=== PATIENT | male | born 1960 | race Caucasian/White ===

== ENCOUNTER 2016-04-19 02:33 | Inpatient (IN) ==
[2016-04-19] MEDS ORDERED: Ondansetron 4 MG/2 ML VIAL IV STA (02:37)
[2016-04-19 03:01] LABS: Basophils % 0.1 %; Eosinophils % 0.2 %; Hematocrit 41.7 % (37.5-50.1); Hemoglobin 12.8 g/dL (12.9-16.9); Immature Granulocytes % 0.7 % (0-4); Lymphocytes # 0.7 K/mcL (0.6-4.6); Lymphocytes % 5.1 %; Mean Corpuscular HGB Conc 30.7 g/dL (31.6-35.5); Mean Corpuscular Hemoglobin 23.3 pg (28.0-33.3); Mean Corpuscular Volume 75.8 fL (83.0-100.0); Mean Platelet Volume 9.6 fL (9.4-12.4); Monocytes # 0.7 K/mcL (0.0-1.3); Monocytes % 4.6 %; Neutrophils # 12.9 K/mcL (1.6-8.9); Platelet Count 303 K/mcL (140-400); Red Cell Distribution Width 16.4 % (11.5-14.5); Segmented Neutrophils % 89.3 %
[2016-04-19 03:13] LABS: BUN/Creatinine Ratio 17 (6-26); Blood Urea Nitrogen 14 mg/dL (8-26); Calcium 8.6 mg/dL (8.6-10.8); Carbon Dioxide 22 mEq/L (19-29); Chloride 107 mEq/L (98-109); Glucose 177 mg/dL (70-99); Osmolality,Calculated 299 (280-300); Potassium 3.5 mEq/L (3.5-4.5); Sodium 142 mEq/L (136-145); eGFR For African Americans > 60 (> 60); eGFR For Non-African Americans > 60 (> 60)
--- NOTE | 2016-04-19 03:22 | Emergency Department Note ---
Disposition Clinical Impression: Seizure, Hypoxia, Hypoglycemia Disposition: Admitted As Inpatient Condition: Good Time of Disposition: 04:39 Seizure HPI - General Chief Complaint: ED Nausea/Vomiting/Diarrhea Stated Complaint: hypoglycemia Time Seen by Provider: 04/19/16 02:36 Source: patient, family, EMS Mode of arrival: ambulatory Limitations: no limitations, altered mental status Nursing Notes Reviewed: Yes Vital Signs Reviewed: Yes - History of Present Illness HPI Narrative: History obtained by patient, family, and EMS providers. Her the patient's , she woke up to him with his arm straight up in the bed moaning in apparent discomfort. He was rigid and unresponsive to her voice. She states that this lasted approximately 2 minutes. She checked his blood sugar during this episode which was 78. Afterwards, the patient was unresponsive to her and lethargic. She called 911. His blood pressure was found to be as low as 50. He received dextrose by ambulance providers with resolution of his hypoglycemia. On arrival to the emergency department, the patient was very confused and slightly somnolent. Per his , this is improving compared when he was picked up by paramedics. His past medical history of insulin-dependent diabetes for which he uses an insulin pump. He does not have any history or family history of seizure disorder. No recent illness or injury. No trauma or medication change. No history of alcohol, benzodiazepine use. - Related Data Allergies Allergy/AdvReac Type Severity Reaction Status Date / Time No Known Allergies Allergy Verified 04/19/16 02:44 All systems ED: reviewed and negative except as stated. Past Medical History - Past Medical History Attestation: Yes The following information was validated with the patient. Source: obtained from family Medical history: Reports: diabetes, hyperlipidemia, hypertension - Social History Smoking Status: Never smoker Smokeless Tobacco Status: Yes Alcohol use: Reports: occasionally Drug use: Reports: none Physical Exam - Head Head exam: atraumatic, normocephalic, normal inspection - Eye Eye exam: Present: normal appearance, PERRL, EOMI - ENT ENT exam: normal exam, normal oropharynx, mucous membranes moist - Neck Neck exam: Present: normal inspection, full ROM, trachea midline - Chest Chest inspection: Present: normal inspection, symmetric chest wall rise - Respiratory Respiratory exam: Clear to auscultation bilaterally without wheezes rales or rhonchi Cardiovascular Cardiovascular exam: Present: regular rate, normal rhythm, normal heart sounds - Abdominal Exam Abdominal exam: Present: soft, Non-Tender. Absent: tenderness, distention, guarding, rebound, rigidity - Extremities Exam Extremities exam: Present: normal inspection, full ROM - Expanded Lower Extremity Exam Hip/Pelvis exam: Present: normal inspection, full ROM - Back Exam Back exam: Present: normal inspection, full ROM. Absent: tenderness, CVA tenderness (R), CVA tenderness (L) - Neurological Exam Neurological exam: Present: alert, oriented X3, CN II-XII intact. While patient is oriented 3, he is slightly confused and answers some questions inappropriately. - Psychiatric Psychiatric exam: Present: normal affect, normal mood - Skin Skin exam: Present: warm, dry, intact, normal color - General Limitations: altered mental status General appearance: alert Course Vital Signs Temperature 97.8 F 04/19/16 02:35 Pulse Rate 75 04/19/16 02:35 Respiratory Rate 16 04/19/16 02:35 Blood Pressure 140/82 04/19/16 02:35 O2 Sat by Pulse Oximetry 85 L 04/19/16 02:35 Temperature 100.2 F H 04/19/16 05:12 Pulse Rate 91 04/19/16 05:12 Respiratory Rate 20 04/19/16 05:12 Blood Pressure 78/42 04/19/16 05:12 O2 Sat by Pulse Oximetry 93 L 04/19/16 05:12 Oxygen Delivery Oxygen Delivery Nasal Cannula Seizure - Lab Data Result diagrams: 04/19/16 02:56 04/19/16 02:56 Lab Results 04/19/16 04/19/16 04/19/16 Range/Units 02:37 02:56 02:56 WBC 14.5 H (4.3-11.1) K/mcL RBC 5.50 (4.19-5.50) M/mcL Hgb 12.8 L (12.9-16.9) g/dL Hct 41.7 (37.5-50.1) % MCV 75.8 L (83.0-100.0) fL MCH 23.3 L (28.0-33.3) pg MCHC 30.7 L (31.6-35.5) g/dL RDW 16.4 H (11.5-14.5) % Plt Count 303 (140-400) K/mcL MPV 9.6 (9.4-12.4) fL Immature Gran % 0.7 (0-4) % Seg Neutrophils % 89.3 % Lymphocytes % 5.1 % Monocytes % 4.6 % Eosinophils % 0.2 % Basophils % 0.1 % Neutrophils # 12.9 H (1.6-8.9) K/mcL Lymphocytes # 0.7 (0.6-4.6) K/mcL Monocytes # 0.7 (0.0-1.3) K/mcL Eosinophils # 0.0 (0.0-0.6) K/mcL Basophils # 0.0 (0.0-0.2) K/mcL Sodium 142 (136-145) mEq/L Potassium 3.5 (3.5-4.5) mEq/L Chloride 107 (98-109) mEq/L Carbon Dioxide 22 (19-29) mEq/L BUN 14 (8-26) mg/dL Creatinine 0.83 (0.72-1.25) mg/dL Est GFR ( Amer) > 60 (> 60) Est GFR (Non-Af Amer) > 60 (> 60) BUN/Creatinine Ratio 17 (6-26) Glucose 177 H (70-99) mg/dL POC Glucose 158 H (58-89) Calculated Osmolality 299 (280-300) Calcium 8.6 (8.6-10.8) mg/dL Total Bilirubin 0.5 (0.2-1.2) mg/dL Direct Bilirubin 0.2 (0.0-0.5) mg/dL Indirect Bilirubin 0.3 (0.0-1.2) mg/dL AST 30 (5-34) Units/L ALT 26 (0-55) Units/L Alkaline Phosphatase 87 (38-126) Units/L Troponin I (0-0.03) ng/mL Serum Total Protein 6.7 (6.0-8.3) g/dL Albumin 4.1 (3.5-5.0) g/dL Globulin 2.6 (2.4-3.5) g/dL Albumin/Globulin Ratio 1.6 (1.1-2.2) Lipase 15 (8-78) Units/L 04/19/16 Range/Units 02:56 WBC (4.3-11.1) K/mcL RBC (4.19-5.50) M/mcL Hgb (12.9-16.9) g/dL Hct (37.5-50.1) % MCV (83.0-100.0) fL MCH (28.0-33.3) pg MCHC (31.6-35.5) g/dL RDW (11.5-14.5) % Plt Count (140-400) K/mcL MPV (9.4-12.4) fL Immature Gran % (0-4) % Seg Neutrophils % % Lymphocytes % % Monocytes % % Eosinophils % % Basophils % % Neutrophils # (1.6-8.9) K/mcL Lymphocytes # (0.6-4.6) K/mcL Monocytes # (0.0-1.3) K/mcL Eosinophils # (0.0-0.6) K/mcL Basophils # (0.0-0.2) K/mcL Sodium (136-145) mEq/L Potassium (3.5-4.5) mEq/L Chloride (98-109) mEq/L Carbon Dioxide (19-29) mEq/L BUN (8-26) mg/dL Creatinine (0.72-1.25) mg/dL Est GFR ( Amer) (> 60) Est GFR (Non-Af Amer) (> 60) BUN/Creatinine Ratio (6-26) Glucose (70-99) mg/dL POC Glucose (58-89) Calculated Osmolality (280-300) Calcium (8.6-10.8) mg/dL Total Bilirubin (0.2-1.2) mg/dL Direct Bilirubin (0.0-0.5) mg/dL Indirect Bilirubin (0.0-1.2) mg/dL AST (5-34) Units/L ALT (0-55) Units/L Alkaline Phosphatase (38-126) Units/L Troponin I 0.00 (0-0.03) ng/mL Serum Total Protein (6.0-8.3) g/dL Albumin (3.5-5.0) g/dL Globulin (2.4-3.5) g/dL Albumin/Globulin Ratio (1.1-2.2) Lipase (8-78) Units/L - EKG Data EKG results narrative: Normal sinus rhythm at 83 with normal axis and intervals. No ST elevation or depression. No pathologic Q waves. No old EKG available. Attestation Statement - Attestation Attestation: For this encounter, I have reviewed the resident, SPOUTING INSTALLER, or PA documentation, treatment plan, and medical decision making; and I have had face to face time with this patient. 36-year-old male brought in by EMS after possible seizure at home. states that they are both sleeping when the patient suddenly stiffened and started moaning. Patient was unable to respond to her at this time. The patient's blood sugar was 78 during this episode. Upon EMS arrival the EMS obtained a fingerstick blood sugar less than 60. They gave an amp of D50 which improved the patient's blood sugar. Patient was postictal upon arrival to the emergency department. He gradually became more alert and was able answer questions. No recent medication changes. Patient is not taking [id number] medications. No recent trauma. No history of epilepsy. Patient was hypoxic upon arrival to the emergency department, satting 86% on room air. Patient possibly had an aspiration event during his seizure. Patient will be admitted to the hospital for first time seizure and hypoxia. Patient and are comfortable with plan for admission to the hospital.
[2016-04-19 03:30] LABS: Alanine Aminotransferase 26 Units/L (0-55); Albumin 4.1 g/dL (3.5-5.0); Albumin/Globulin Ratio 1.6 (1.1-2.2); Alkaline Phosphatase 87 Units/L (38-126); Aspartate Amino Transferase 30 Units/L (5-34); Bilirubin,Direct 0.2 mg/dL (0.0-0.5); Bilirubin,Indirect 0.3 mg/dL (0.0-1.2); Bilirubin,Total 0.5 mg/dL (0.2-1.2); Globulin 2.6 g/dL (2.4-3.5); Lipase 15 Units/L (8-78); Total Protein 6.7 g/dL (6.0-8.3)
[2016-04-19] MEDS ORDERED: *HR* Promethazine 25 MG/ML VIAL IVP ONE (04:49)
[2016-04-19] MEDS ORDERED: Ondansetron 4 MG/2 ML VIAL IVP PRN (05:45)
[2016-04-19] MEDS ORDERED: Naloxone 0.4 MG/ML INJ IVP PRN (05:45)
[2016-04-19] MEDS ORDERED: Acetaminophen 325 MG TABLET PO PRN (05:45)
[2016-04-19] MEDS ORDERED: *HR* LORazepam 2 MG/ML VIAL IVP PRN (05:55)
[2016-04-19] MEDS ORDERED: Vancomycin 1,500 MG in D5% in Water 250 ML IVPB SCH (06:00)
--- NOTE | 2016-04-19 06:06 | Internal Med History&Physical ---
Date of Encounter: 04/19/16 Time of Encounter: 05:57 Assessment and Plan (1) Acute encephalopathy Current visit: Yes Status: Acute 1. Given the presenting history and current symptoms, I am concerned about infectious etiology. 2. Will order STAT blood cultures, urine culture, CSF culture and CSF for HSV PCR. 3. I will request LP through radiology. 4. Will start IV Vancomycin, Rocephin, and IV Acyclovir. 5. Will monitor glucose levels hourly for now. 6. Will check Influenza A, B, H1N1. (2) Hypoglycemia Current visit: Yes Status: Acute 1. Monitor glucose hourly for now until it stabilizes. 2. Insulin pump removed. (3) Seizure Current visit: Yes Status: Acute 1. Likely due to hypoglycemia, but infectious etiology is a concern. 2. Work-up as above. 3. Continue antibiotics and Acyclovir until results obtained. 4. Will obtain MRI brain and EEG. 5. Consult neurology. (4) DVT prophylaxis Current visit: Yes Status: Acute 1. Heparin SQ. Internal Medicine - H&P: HPI Chief complaint: seizure Admitted From: Emergency Dept Plans for Post Hospital Care: Home History of present illness: Mr. Waldrop is a 56 year old male who presents to ER with seizure that awoke him from sleep at roughly 1 AM this morning. His witnessed the event and she awoke from sleep to attend to his needs. She checked his glucose and it was 78 at that time. Because his seizure lasted several minutes, she called 911. EMS arrived and checked his glucose again and administered 2 amps of dextrose. Glucose levels were above 78. Nonetheless, he received dextrose and was transported to the ER. In the ER, patient remained postictal and had initial chemistries and labs drawn. CT of the head and chest x-ray were both negative. He was then admitted to hospitalist service for seizure, possibly due to hypoglycemia or new onset seizure disorder. Upon my assessment of the patient on the floor, he appears ill with low-grade fever, chills, body aches, confusion, disorientation, cool extremities, and excessive somnolence. I ordered stat glucose level and it was 142. I talked with his at length and she confirmed that he is now roughly 5 hours postseizure and remains quite postictal. He has never had a seizure before. He has had no ill contacts. He has not had any fevers, shakes, chills, night sweats, vomiting, diarrhea, cough, or congestion prior to this event. He was feeling well last night before going to bed. He has never had an encephalopathic event such as this one. She denies that he has any history of oral cold sores or oral herpes. He has not had any new medications. He does not use any street drugs. He drinks rare alcohol. He has not had any flu exposure that she knows of. Given his current state, I am concerned about encephalitis, and I will therefore initiate antibiotics and IV acyclovir medications immediately. Meanwhile, I am going to order a lumbar puncture for CSF studies per radiology and an MRI as well. Additionally, I will obtain an EEG and consult neurology for assistance. We will also monitor his glucose levels hourly, and his insulin pump has been removed. I explained this to his and she agrees with the plan. Past Med Surg Social Fam HX - Past Medical History Source: old records reviewed, obtained from family Medical history: diabetes, hyperlipidemia, hypertension Psychiatric history: no psych history - Past Surgical History Surgical History: appendectomy, hip replacement - Social History Smoking Status: Never smoker Smokeless Tobacco Status: Yes Alcohol use: occasionally Drug use: none Occupational status: employed Current living situation: Home, With Family Activity Level: Independent ambulation Recent Out of Country Travel Within the Last 8 Weeks: No - Family History Father Living Status: Still Living Hx Family Cardiac Disorders: Yes (heart attack) Mother History Unknown: Yes Living Status: Cause of : Breast Cancer Hx Family Cancer: Yes Internal Medicine - H&P: Meds Allergies No Known Allergies Allergy (Verified 04/19/16 02:44) ROS unobtainable: due to mental status Review of systems: unobtainable from patient due to mental status; as per [facility] [place] according to - Constitutional Vitals: Temp Pulse Resp BP Pulse Ox 100.2 F H 91 20 78/42 93 L 04/19/16 05:12 04/19/16 05:12 04/19/16 05:12 04/19/16 05:12 04/19/16 05:12 General appearance: Present: cooperative, A&O X 1, mild distress. Absent: answers questions appropriately Exam: appears ill; shivering; non-toxic; confused and disoriented; temperature 100.2 F - Head Head exam: Present: atraumatic, normal inspection - Expanded Head Exam Head exam expanded: Absent: abrasion, contusion, general tenderness, hematoma - Eye Eye exam: Present: EOMI, PERRL. Absent: scleral icterus Pupils: Present: normal accommodation - ENT ENT exam: Present: mucous membranes dry, normal exam, normal oropharynx - Neck Neck exam general surgery: Present: full ROM, normal inspection, supple. Absent : lymphadenopathy, tenderness, nuchal rigidity, thyromegaly - Respiratory Respiratory exam: Present: CTAB, tachypnea. Absent: chest wall tenderness, rales, rhonchi, wheezes - Cardiovascular Cardiovascular exam: Present: RRR, +S1, +S2. Absent: diastolic murmur, systolic murmur - GI/Abdominal GI/Abdominal exam: Present: normal bowel sounds, soft. Absent: hepatomegaly, mass, splenomegaly, tenderness - Extremities Exam Extremities exam: Present: full ROM, radial pulses palpable and symetrical. Absent: calf tenderness, joint swelling, normal capillary refill (delayed at roughly 3 seconds), tenderness, warm (cool hands and feet) - Back Exam Back exam: Present: normal inspection. Absent: CVA tenderness (L), CVA tenderness (R), paraspinal tenderness - Neurological Exam Neurological exam: Present: alert, altered, CN II-XII intact, no focal deficits , strengths equal and symetr throughout. Absent: oriented X3 Additional comments: Negative Kernig; Negative Brudzinski - Psychiatric Additional comments: somnolent; arousable; confused - Skin Skin exam: Present: dry, warm (cool feet/hands/warm torso). Absent: petechiae, rash Internal Med - H&P Results - Labs CBC & Chem 7: 04/19/16 02:56 04/19/16 02:56 - EKG Data -: EKG Interpreted by Myself - EKG Data Prior EKG available for review: no EKG comments: 04/19/16 06:11 sinus rhythm; septal Q waves suggest old septal [place]. - Diagnostic Studies Chest x-ray Status: image reviewed by me (negative)
[2016-04-19] MEDS ORDERED: Vancomycin 2,000 MG in D5% in Water 500 ML IVPB ONE (06:15)
[2016-04-19] MEDS: 0.9 % Sodium Chloride w KCl 20 MEQ/1,000 ML MLS IVC SCH (06:22)
[2016-04-19 06:26] LABS: Bilirubin,Urine Negative (Negative); Blood,Urine Moderate (Negative); Clarity,Urine Clear (Clear); Color,Urine Yellow (Yellow); Glucose,Urine (UA) 500 mg/dL (Normal); Ketones,Urine Negative (Negative); Leukocyte Esterase,Urine Negative (Negative); Nitrite,Urine Negative (Negative); Protein,Urine 30 mg/dL (Neg-Trace); Specific Gravity,Urine 1.024 (1.010-1.025); Urobilinogen,Urine Normal (Normal)
[2016-04-19 06:31] LABS: Bacteria,Urine None Seen per hpf (None-Few); Hyaline Casts,Urine None Seen per lpf (None-Few); Squamous Epithelial Cell,Urine Many per lpf (None-Few)
[2016-04-19] MEDS: *HR* Heparin 5,000 UNIT/ML VIAL SQ SCH ×2 (06:32→18:39)
[2016-04-19 06:44] LABS: Prothrombin Time 11.1 Seconds (9.4-12.1)
[2016-04-19 06:47] LABS: Activated Partial Thrombo Time 24.6 Seconds (26.0-36.0)
[2016-04-19] MEDS ORDERED: 0.9 % Sodium Chloride 1,000 ML IVC ONE (07:45)
[2016-04-19 08:04] LABS: 2009 H1N1 PCR NOT DETECTED (Not Detect); Influenza A PCR Negative (Negative); Influenza B PCR Negative (Negative)
[2016-04-19 10:35] LABS: Red Blood Cell,CSF < 0.002 M/mcL
[2016-04-19 10:41] LABS: Appearance,CSF Clear (Clear)
[2016-04-19] MEDS: Acyclovir 800 MG in D5% in Water 250 ML IVPB SCH ×3 (10:45→23:19)
[2016-04-19 11:11] LABS: Glucose,CSF 98 mg/dL (40-70); Total Protein,CSF 40 mg/dL (15-45)
--- NOTE | 2016-04-19 13:18 | EEG/EMG/Oth Biometrics Report ---
EEG Procedure Report Date of procedure: 04/19/16 Procedure Note: This EEG was acquired with standard international 1020 system with EKG recording. The background EEG activity was characterized by the presence of mixture of alpha, theta and delta activity with best frequency of 10.5 Hz. The background activity was reactive to eye openings. Sleep stages were not identified during this tracing. Drowsiness was characterized by drop off of posterior dominant Alpha rhythm. There are no electrographic seizures identified during this tracing. There are no epileptiform discharges and focal slowing noted during this recording. Photic stimulation produced and hyperventilation produced no abnormalities. EKG tracing showed no significant cardiac dysrhythmia. Impression: This is essentially a normal awake and asleep EEG. Clinical Correlation: Normal EEGs, however, do not exclude epilepsy. Clinical correlation is advised.
[2016-04-19] MEDS ORDERED: Dextrose Gel 15 GM PO PRN ×2 (13:32)
[2016-04-19] MEDS ORDERED: D5% in Water 1,000 ML IV PRN (13:32)
[2016-04-19] MEDS ORDERED: *HR* Dextrose 50 % in Water (Syg) 50 ML SYRINGE IVP PRN (13:32)
--- NOTE | 2016-04-19 13:40 | Internal Med Progress Note ---
Date of Encounter: 04/19/16 Time of Encounter: 11:00 - Assessment and plan (1) Viral syndrome Current Visit: Yes Status: Acute Assessment and plan: Patient with fever, chills, leukocytosis NO source for now CSF does not show elevated protein or white or red cells, CSF glucose was elevated UA is unremarkable CXR with no infiltrates EEG is back with normal results will continue antibiotics for now Neurology eval Brain MRI is pending Sliding scale insulin FS [id number], feed patient and monitor closely Urine, blood cultures have been sent, will follow Will not administer anti-epilepsy medications as at now, Patient is high risk due to risk of recurrent seizures with encephalopathy, suspected sepsis from unknown source as of now, and on Vancomycin which needs monitoring (2) Diabetes mellitus Current Visit: Yes Status: Chronic Qualifiers: Diabetes mellitus type: type 1 Diabetes mellitus complication status: with unspecified complications Qualified Code(s): E10.8 - Type 1 diabetes mellitus with unspecified complications (3) Acute encephalopathy Current Visit: Yes Status: Resolved (4) Hypoglycemia Current Visit: Yes Status: Resolved Assessment and plan: Continue to monitor FS (5) Seizure Current Visit: Yes Status: Acute Assessment and plan: Possibly secondary to hypoglycemia, however, FS was 78 at time of event Follow neurology eval Seizure precautions - Subjective Interval history: 56 Y/O M with Type I DM, HTN Patient was in his usual state of health till early hours of the morning when his witnessed what seemed to be "tonic seizure" per chart He also had a prolonged post-ictal state and fevers and was started on empiric meningitis management At my time of review, patient was awaiting LP He is awake and alert, oriented X3 but thought he was hospitalized because of low sugars. He denies fever or chills, main complain was just of fatigue. He denies flu- like symptoms or sick contacts, denies urinary symptoms, cough , shortness of breath. He has no skin lesions. He has no abdominal pain or diarrhea he continues to be febrile. - Constitutional Vitals: Temp Pulse Resp BP Pulse Ox 100.9 F H 79 94 151/68 93 L 04/19/16 07:45 04/19/16 07:45 04/19/16 07:45 04/19/16 07:45 04/19/16 08:48 General appearance: Present: cooperative, A&O X 3, pleasant, no acute distress. Absent: answers questions appropriately - Head Head exam: Present: atraumatic, normocephalic - Eye Eye exam: Present: PERRL, conjuntiva pink, sclera anicteric Pupils: Present: PERRL - Neck Neck exam general surgery: Present: supple, trachea midline. Absent: lymphadenopathy - Respiratory Respiratory exam: Present: CTAB. Absent: accessory muscle use, rales, rhonchi, wheezes - Cardiovascular Cardiovascular exam: Present: RRR, +S1, +S2. Absent: diastolic murmur, gallop, rubs, systolic murmur - GI/Abdominal GI/Abdominal exam: Present: normal bowel sounds, soft, no peritoneal signs. Absent: distended, tenderness - Extremities Exam Extremities exam: Present: warm, radial pulses palpable and symetrical. Absent : calf tenderness, cyanotic, pedal edema - Neurological Exam Neurological exam: Present: CN II-XII intact, oriented X3, no focal deficits. Absent: pronater drift, facial droop, speech deficit Additional comments: No meningeal signs neck is supple, Bruskinski and Kernig's negative - Skin Skin exam: Present: dry, intact Internal Medicine: Result - Labs CBC & Chem 7: 04/19/16 02:56 04/19/16 02:56 Labs: Urine 04/19/16 Range/Units 06:05 Urine Color Yellow (Yellow) Urine Clarity Clear (Clear) Urine pH 6.0 (5.0-8.0) pH Units Ur Specific [employer] 1.024 (1.010-1.025) Urine Protein 30 H (Neg-Trace) mg/dL Urine Glucose (UA) 500 H (Normal) mg/dL - ABG Interpretation ABG results: PT/INR, D-dimer PT 11.1 Seconds (9.4-12.1) 04/19/16 02:50 - Impressions Impressions Lumbar Puncture Fluoroscopy 04/19/16 05:45 IMPRESSION: Successful fluoroscopic-guided lumbar puncture. D/ / 04/19/2016 10:30:05 Karri Giron MD / Ara Oneal Interpreting Provider: Karri Giron MD Consult Discharge Plan - Plan Referrals: Gabrielle Carvajal, [employer] [Primary Care Provider] -
--- NOTE | 2016-04-19 13:41 | Neurology - Consult Note ---
Date of Encounter: 04/19/16 Time of Encounter: 13:41 Assessment and Plan (1) Acute encephalopathy Current Visit: Yes Status: Resolved 1. Unclear etiology and is resolving with no acute focal neurological deficits 2. Questionable seizure activity, EEG very limited secondary to motion artifact but no clear epileptic discharge activity was noted. 3. MRI is pending 4. Head CT negative. LP performed and negative for bacteria, final cultures still pending as well as HSV 5. Patient does have a mild leukocytosis today with borderline fevers of 100.2 and 100.9. No clear source and the patient is otherwise asymptomatic. Could be related to a viral syndrome. No recent travel, sick contacts. However, will check Lyme disease titer. 6. I am also concerned with the patient's possible new murmur and diaphoresis. EKG from the ED was unavailable, would consider repeat EKG and ordering echo although the patient is asymptomatic. Will defer to primary team. 7. Further recommendations pending MRI results and attending evaluation. History of Present Illness Chief complaint: possible seizure HPI: Mr. Waldrop is a 56 year old male who presented through the [facility] this morning after what is thought to be seizure-like activity. History is obtained from chart review but mainly from the patient's who was with him the entire time. The patient doesn't really remember what happened. The states that she was awoken from sleep around 0100 today with the patient gritting his teeth, both arms flexed forward and remained stiff. She also states he was moaning, almost in agony, and was very loud. States this went on for several minutes. She did not notice any rhythmic motions, jerking, head turning, foaming at the mouth, or involvement of the lower extremities. He has never had symptoms like this before. Reports she thought it may be related to his blood sugar but checked it and it was very good for him, around 70. Reports the episode stopped but he has remained confused since. She does state he is better than what he was but is still not back to baseline. There was no preceeding events or trauma that they could remember. He denies any recent fevers, chills, chest pain, shortness of breath , neck pain/stiffness, rash, abdominal pain, n/v/d, numbness/weakness in any extremity, trouble speaking, or any other symptoms. He states that he just feels extremely tired and wants to sleep all the time since the event. There was no associated trauma 2/2 the event as the patient remained in bed until EMS arrival. Per ED/Hosp notes, the patient seemed post-ictal for several hours after this event. No history of seizure disorder. Only PMH is HTN, HLD, DM. Reports compliance with his medications. Past Med Surg Social Fam HX - Past Medical History Medical history: diabetes, hyperlipidemia, hypertension Psychiatric history: no psych history - Past Surgical History Surgical History: appendectomy, hip replacement - Social History Smoking Status: Never smoker Smokeless Tobacco Status: Yes Alcohol use: occasionally Drug use: none - Family History Father Living Status: Still Living Hx Family Cardiac Disorders: Yes (heart attack) Mother History Unknown: Yes Living Status: Cause of : Breast Cancer Hx Family Cancer: Yes Medications and Allergies Aspirin [Lo-Dose Aspirin EC] 81 mg PO DAILY 04/19/16 [History] Atorvastatin [Lipitor] 80 mg PO HS 04/19/16 [History] Ferrous Sulfate [Iron] 325 mg PO DAILY 04/19/16 [History] Insulin ASPART [NovoLOG] 80 unit IJ DAILY PRN 04/19/16 [History] Lisinopril [Zestril] 10 mg PO DAILY 04/19/16 [History] Terbinafine HCl [Lamisil] 250 mg PO DAILY 04/19/16 [History] Allergies No Known Allergies Allergy (Verified 04/19/16 10:27) All Systems: A 10-system review of systems was performed and is negative for pertinent findings except as documented above in the HPI. - Constitutional Constitutional ROS IM: daytime sleepiness, fatigue, lethargy, malaise, weakness (generalized ), no chills, no fever(s), no headache(s) - Eyes Eyes: bilateral: blurred vision (denies ) - Nose, Mouth, Throat Nose, mouth and throat: no dry mouth, no dysphagia, no headache(s), no neck pain , no tongue swelling, no vertigo - Cardiovascular Cardiovascular ROS IM: no chest pain, no chest pain at rest, no chest pain with activity, no dyspnea, no edema - Respiratory Respiratory IM: no cough, no dyspnea - Gastrointestinal Gastrointestinal: no abdominal pain, no vomiting - Genitourinary Genitourinary ROS: no dysuria, no flank pain - Musculoskeletal Musculoskeletal ROS IM: no back pain - Integumentary Integumentary IM: no rash - Neurological Neurological ROS: as per HPI, abnormal movements, confusion, convulsions, weakness, no dizziness, no focal weakness, no headache(s), no loss of vision, no numbness, no paresthesias, no sensory deficit, no syncope, no tingling - Psychiatric Psychiatric general PM: no abnormal sleep pattern Physical Examination - Vital Signs Vital Signs: Initial Vital Signs Temp Pulse Resp BP Pulse Ox 97.8 F 75 16 140/82 85 L 04/19/16 02:35 04/19/16 02:35 04/19/16 02:35 04/19/16 02:35 04/19/16 02:35 - Exam Exam: patient also has irregular heart rhythm and does have a very faint new murmur. It sounds like end-systolic but could be early diastolic. Patient also has very strong, bounding, carotid pulses and at his sternal notch. He is diaphoretic, frequently falling asleep, and appears comfortable but some what confused. - Constitutional General appearance: comfortable, acutely ill - Neurologic Sensorimotor examination: pronator drift (Slight on L) Detailed motor examination: grossly full strength in all extremities, full strength in all major muscle groups Motor examination - right side: 5/5: deltoids, biceps, triceps, wrist flexion, wrist extension, fur blower operator, hip flexors, tibialis Anterior, quadriceps, toe extension (EHL), plantarflexion Motor examination - left side: 4/5: fur blower operator, 5/5: deltoids, biceps, triceps, wrist flexion, wrist extension, hip flexors, quadriceps, tibialis Anterior, toe extension (EHL), plantarflexion Detailed sensory examination: intact Reflexes: Biceps: 1+, Triceps: 2+, Brachioradialis: 2+, Patella: 1+, Achilles: 1 + Mental Status Examination: awake, oriented to person (Knows full name), oriented to place ("I don't know", Does not know what town he is in or what hospital. Able to state he is from [place], [place].), oriented to time (" April 2016"), follows commands appropriately, answers questions appropriately , no agnosia, no aphasia, no aproxia, drowsy (fell asleep several times during exam if not directly engaged in conversation or exam ), lethargic, opens eyes to voice, makes eye contact, impaired memory (from event on ) Cranial nerve examination: PERRL, EOMI, visual burgess intact, sensory to face intact, mastication intact, no facial asymmetry is present, no dysarthria, hearing is intact symmetrically, soft palate elevates bilaterally upon phonation , flexes SCM and trapezius muscles symmetrically with full power, tongue protrudes midline, no atrophy or facial fasiculations present Cerebellar examination: performs finger to nose and heel to sue symmetrically without ataxia Results - Laboratory Findings CBC and BMP: 04/19/16 02:56 04/19/16 02:56 Abnormal lab findings: Abnormal lab results WBC 14.5 K/mcL (4.3-11.1) H 04/19/16 02:56 Hgb 12.8 g/dL (12.9-16.9) L 04/19/16 02:56 MCV 75.8 fL (83.0-100.0) L 04/19/16 02:56 MCH 23.3 pg (28.0-33.3) L 04/19/16 02:56 MCHC 30.7 g/dL (31.6-35.5) L 04/19/16 02:56 RDW 16.4 % (11.5-14.5) H 04/19/16 02:56 Neutrophils # 12.9 K/mcL (1.6-8.9) H 04/19/16 02:56 APTT 24.6 Seconds (26.0-36.0) L 04/19/16 02:50 Glucose 177 mg/dL (70-99) H 04/19/16 02:56 POC Glucose 142 (58-89) H 04/19/16 05:18 Urine Protein 30 mg/dL (Neg-Trace) H 04/19/16 06:05 Urine Glucose (UA) 500 mg/dL (Normal) H 04/19/16 06:05 Urine Blood Moderate (Negative) H 04/19/16 06:05 Urine Microscopic RBC 3-5 per hpf (0-3) H 04/19/16 06:05 Urine Microscopic WBC 5-15 per hpf (0-3) H 04/19/16 06:05 Ur Squamous Epith Cells Many per lpf (None-Few) H 04/19/16 06:05 CSF Glucose 98 mg/dL (40-70) H 04/19/16 09:40 Consult Discharge Plan - Plan Referrals: Gabrielle Carvajal, JUANY [Primary Care Provider] -
--- NOTE | 2016-04-19 15:16 | Electrocardiograph Report ---
[address] [place] [address] Test Date: 2016-04-19 Pat Name: Tc Waldrop Department: 103 Room: 3B22 Gender: Device Repair Technician: : 1960 Requested By: Jose E Hayes Order Number: [id number] Reading MD: Rachelle Betancourt Measurements Intervals [place] Rate: 83 P: 37 AL: 202 QRS: 39 QRSD: 104 T: 45 QT: 380 QTc: 420 Interpretive Statements SINUS RHYTHM POSSIBLE SEPTAL MYOCARDIAL INFARCTION, PROBABLY OLD Electronically Signed On 04-19-2016 15:14:44 EST by Rachelle Betancourt
[2016-04-19] MEDS: Insulin LISPRO 300 UNITS/3 ML VIAL SQ SCH ×2 (17:32→20:54)
[2016-04-19] MEDS ORDERED: Vancomycin 1,750 MG in D5% in Water 500 ML IVPB SCH (18:00)
[2016-04-20] MEDS: 0.9 % Sodium Chloride w KCl 20 MEQ/1,000 ML MLS IVC SCH (00:39)
[2016-04-20 04:10] LABS: Basophils % 0.3 %; Eosinophils % 0.2 %; Hematocrit 35.8 % (37.5-50.1); Immature Granulocytes % 0.4 % (0-4); Lymphocytes # 1.2 K/mcL (0.6-4.6); Lymphocytes % 10.2 %; Mean Corpuscular Hemoglobin 23.2 pg (28.0-33.3); Mean Corpuscular Volume 74.9 fL (83.0-100.0); Mean Platelet Volume 10.3 fL (9.4-12.4); Monocytes # 0.8 K/mcL (0.0-1.3); Monocytes % 6.6 %; Neutrophils # 9.4 K/mcL (1.6-8.9); Platelet Count 233 K/mcL (140-400); Red Blood Count 4.78 M/mcL (4.19-5.50); Red Cell Distribution Width 16.9 % (11.5-14.5); Segmented Neutrophils % 82.3 %
[2016-04-20 04:14] LABS: Hemoglobin 11.1 g/dL (12.9-16.9)
[2016-04-20 04:30] LABS: Alanine Aminotransferase 36 Units/L (0-55); Albumin/Globulin Ratio 1.2 (1.1-2.2); Alkaline Phosphatase 65 Units/L (38-126); Aspartate Amino Transferase 79 Units/L (5-34); BUN/Creatinine Ratio 15 (6-26); Bilirubin,Total 0.7 mg/dL (0.2-1.2); Blood Urea Nitrogen 14 mg/dL (8-26); Calcium 8.7 mg/dL (8.6-10.8); Carbon Dioxide 19 mEq/L (19-29); Chloride 103 mEq/L (98-109); Globulin 2.6 g/dL (2.4-3.5); Glucose 368 mg/dL (70-99); Magnesium 1.6 mg/dL (1.6-2.6); Osmolality,Calculated 289 (280-300); Potassium 4.5 mEq/L (3.5-4.5); Total Protein 5.8 g/dL (6.0-8.3); eGFR For African Americans > 60 (> 60); eGFR For Non-African Americans > 60 (> 60)
[2016-04-20 04:31] LABS: Albumin 3.2 g/dL (3.5-5.0); Sodium 132 mEq/L (136-145)
[2016-04-20] MEDS: *HR* Heparin 5,000 UNIT/ML VIAL SQ SCH ×2 (06:35→18:19)
[2016-04-20] MEDS: Insulin LISPRO 300 UNITS/3 ML VIAL SQ SCH ×5 (08:51→20:31)
[2016-04-20] MEDS ORDERED: Insulin DETEMIR 100 UNIT/ML X5UNITS SQ SCH (09:00)
--- NOTE | 2016-04-20 10:22 | ECHO - Doppler Report ---
Echocardiogram Name: Tc Waldrop Date of Study: 04/20/2016 Date: 1960 Ht: 71.0 in Medical Record#: [id number] Age: 56 Wt: 212.0 lb Gender: Male BSA: 2.16 Order #: [id number] Location: [facility] Room #: 3B22 Reading Physician: Hema Ruiz DO, FACC, ELENA PRICE Steam Trap Worker: Nicolle Turpin RVT, RDCS Ordering Physician: Krishna Strong MD Primary Physician: Gabrielle Carvajal CNP Indications: Murmur Impressions: LVEF 65-70%. Normal LV chamber size and function. Mild concentric left ventricular hypertrophy. Mild left ventricular diastolic dysfunction. Normal right ventricular structure and function. Mild pulmonary hypertension. No significant valvular dysfunction. Left Ventricular Wall Motion: Rest Echo Findings All wall segments showed normal motion. Findings: Study Quality * Technically adequate exam. ECG Findings * Sinus rhythm with PVCs. Left Ventricle * LVEF 65-70%. * Normal LV chamber size and function. * Mild concentric left ventricular hypertrophy. * Mild left ventricular diastolic dysfunction. Right Ventricle * Normal right ventricular structure and function. Left Atrium * Normal left atrial size. Right Atrium * Normal right atrial size. Interatrial Septum * Interatrial septum not well evaluated. Aortic Valve * Trileaflet aortic valve with normal function. * No aortic regurgitation. * No aortic stenosis. Mitral Valve * Normal mitral valve structure and function. * No mitral regurgitation. * No mitral stenosis. Tricuspid Valve * Normal tricuspid valve structure and function. * Trace tricuspid regurgitation. * Mild pulmonary hypertension. Pulmonic Valve * Normal pulmonic valve structure and function. * No pulmonic regurgitation. Aorta * Normally sized aortic root. Pericardium * The pericardium appears normal. IVC * The IVC is not well evaluated. Pulmonary Artery * Normal visualized portions of the main pulmonary artery. History Hypertension Diabetes Hypercholesteremia Family History of CAD Measurements: BP: 112/ 68 2D Normal Values RVIDd: 3.70 cm <2.7 cm IVSd: 1.30 cm 0.6 - 1.0 cm LVIDd: 4.40 cm 3.7 - 5.6 cm LVPWd: 1.30 cm 0.6 - 1.1 cm LVIDs: 3.00 cm 1.5 - 3.6 cm AO: 3.50 cm < 4.0 cm LA: 3.20 cm 2.0 - 4.0cm %FS: 31.80 cm >25 % LA volume: 46 Mitral Valve Peak E:.97 m/sec Peak A:1.02 m/sec E/A Ratio:1 Tricuspid Valve TV Regurg Peak Grad: 38.00mmHg TV Regurg Peak Andreas: 3.07m/sec Updated by Hema Ruiz DO, GABBY, ELENA PRICE on 04/20/2016 10:01:14 AM electronically signed on 04/20/2016 10:18:08 AM with status of Final Wall Motion Cruz: 1=Normal, 2=Hypokinesis, 3=Akinesis, 4=Dyskinesis, 5=Aneurysmal, 6=Hyperkinetic, X=Not Visualized (Blank)=Missing
[2016-04-20] MEDS ORDERED: Insulin LISPRO 300 UNITS/3 ML VIAL SQ SCH (12:00)
--- NOTE | 2016-04-20 16:42 | Internal Med Progress Note ---
Date of Encounter: 04/20/16 Time of Encounter: 12:10 - Assessment and plan (1) Viral syndrome Current Visit: Yes Status: Acute Assessment and plan: Patient presented with fever, chills, leukocytosis CSF does not show elevated protein or white or red cells, CSF glucose was elevated, preliminary culture negative Urine analysis and urine culture with no infection CXR with no infiltrates EEG is back with normal results Brain MRI with no acute finding Patient has been afebrile Will d/c antibiotics, and observe for 24 hrs Anticipate d/c a.m if he remains afebrile Follow blood cultures (2) Diabetes mellitus Current Visit: Yes Status: Chronic Assessment and plan: Resume basal, prandial and supplemental insulin FS ACHS Qualifiers: Diabetes mellitus type: type 1 Diabetes mellitus complication status: with unspecified complications Qualified Code(s): E10.8 - Type 1 diabetes mellitus with unspecified complications (3) Acute encephalopathy Current Visit: Yes Status: Resolved Assessment and plan: Resolved Possibly from post-ictal state and hypoglycemia (4) Hypoglycemia Current Visit: Yes Status: Resolved Assessment and plan: Resolved Continue to monitor FS (5) Seizure Current Visit: Yes Status: Acute Assessment and plan: Possibly secondary to hypoglycemia, however, FS was 78 at time of event Neuro eval appreciated Seizure precautions - Subjective Interval history: 56 Y/O M with Type I DM, HTN He is being managed for new onset seizure (unwitnessed), viral syndrome He has been afebrile for >24hrs, last Temp 04/19/16 100.9 Urine and CSF cultures preliminary no growth Blood culture is pending Patient is awake, alert, able to make conversations He is seen at the bedside with spouse, has no new complains ECHO report noted: LVEF 65-70%, LVH, Mild LVDD, Mild Pul HTN. Normal RV size and function, no valvular dysfunction - Constitutional Vitals: Temp Pulse Resp BP Pulse Ox 98.3 F 83 17 123/74 94 L 04/20/16 16:17 04/20/16 16:17 04/20/16 16:17 04/20/16 16:17 04/20/16 16:17 General appearance: Present: cooperative, A&O X 3, pleasant, no acute distress. Absent: answers questions appropriately - Head Head exam: Present: atraumatic, normocephalic - Eye Eye exam: Present: PERRL, conjuntiva pink, sclera anicteric Pupils: Present: PERRL - Neck Neck exam general surgery: Present: supple, trachea midline. Absent: lymphadenopathy - Respiratory Respiratory exam: Present: CTAB. Absent: accessory muscle use, rales, rhonchi, wheezes - Cardiovascular Cardiovascular exam: Present: RRR, +S1, +S2. Absent: diastolic murmur, gallop, rubs, systolic murmur - GI/Abdominal GI/Abdominal exam: Present: normal bowel sounds, soft, no peritoneal signs. Absent: distended, tenderness - Extremities Exam Extremities exam: Present: warm, radial pulses palpable and symetrical. Absent : calf tenderness, cyanotic, pedal edema - Neurological Exam Neurological exam: Present: CN II-XII intact, oriented X3, no focal deficits. Absent: pronater drift, facial droop, speech deficit - Skin Skin exam: Present: dry, intact Internal Medicine: Result - Labs CBC & Chem 7: 04/20/16 03:37 04/20/16 03:37 Labs: Short CBC 04/20/16 Range/Units 03:37 WBC 11.4 H (4.3-11.1) K/mcL Hgb 11.1 L D (12.9-16.9) g/dL Hct 35.8 L (37.5-50.1) % Plt Count 233 (140-400) K/mcL Neutrophils # 9.4 H (1.6-8.9) K/mcL BMP 04/20/16 03:37 Sodium 132 L D Potassium 4.5 D Chloride 103 Carbon Dioxide 19 BUN 14 Creatinine 0.96 Glucose 368 H Calcium 8.7 Liver Function 04/20/16 Range/Units 03:37 Total Bilirubin 0.7 (0.2-1.2) mg/dL AST 79 H (5-34) Units/L ALT 36 (0-55) Units/L Alkaline Phosphatase 65 (38-126) Units/L Albumin 3.2 L D (3.5-5.0) g/dL - ABG Interpretation ABG results: PT/INR, D-dimer PT 11.1 Seconds (9.4-12.1) 04/19/16 02:50 - Impressions Impressions Brain MRI 04/19/16 05:45 IMPRESSION: 1. Trace chronic microvascular white matter ischemic disease is noted supratentorially. 2. No evidence of acute infarct or intracranial mass. No ictal focus is identified. D/ / 04/19/2016 15:24:03 Jalil White MD / drake Interpreting Provider: Jalil White MD Consult Discharge Plan - Plan Referrals: Gabrielle Carvajal CNP [Primary Care Provider] -
[2016-04-20] MEDS: Insulin DETEMIR 100 UNIT/ML X5UNITS SQ SCH (20:36)
[2016-04-21 03:56] LABS: Basophils % 0.2 %; Eosinophils # 0.1 K/mcL (0.0-0.6); Eosinophils % 1.6 %; Hemoglobin 11.3 g/dL (12.9-16.9); Immature Granulocytes % 0.2 % (0-4); Lymphocytes # 1.2 K/mcL (0.6-4.6); Lymphocytes % 14.6 %; Mean Corpuscular HGB Conc 31.4 g/dL (31.6-35.5); Mean Corpuscular Hemoglobin 23.3 pg (28.0-33.3); Mean Corpuscular Volume 74.1 fL (83.0-100.0); Monocytes # 0.7 K/mcL (0.0-1.3); Monocytes % 8.9 %; Neutrophils # 6.1 K/mcL (1.6-8.9); Platelet Count 224 K/mcL (140-400); Red Blood Count 4.86 M/mcL (4.19-5.50); Red Cell Distribution Width 16.8 % (11.5-14.5); Segmented Neutrophils % 74.5 %
[2016-04-21] MEDS: *HR* Heparin 5,000 UNIT/ML VIAL SQ SCH (06:15)
[2016-04-21 07:53] VITALS: BP 117/72
[2016-04-21] MEDS: Insulin DETEMIR 100 UNIT/ML X5UNITS SQ SCH (08:38)
[2016-04-21] MEDS: Insulin LISPRO 300 UNITS/3 ML VIAL SQ SCH ×2 (08:38)
--- NOTE | 2016-04-21 08:42 | Discharge Summary ---
Date of Encounter: 04/21/16 Time of Encounter: 08:42 - Discharge Diagnosis (1) Viral syndrome Priority: Primary Status: Acute (2) Diabetes mellitus Priority: Secondary Status: Chronic Qualifiers: Diabetes mellitus type: type 1 Diabetes mellitus complication status: with unspecified complications Qualified Code(s): E10.8 - Type 1 diabetes mellitus with unspecified complications (3) Acute encephalopathy Priority: Secondary Status: Resolved (4) Hypoglycemia Priority: Secondary Status: Resolved (5) Seizure Priority: Primary Status: Acute - Discharge Medications Home Medications: Aspirin [Lo-Dose Aspirin EC] 81 mg PO DAILY 04/19/16 [History] Atorvastatin [Lipitor] 80 mg PO HS 04/19/16 [History] Ferrous Sulfate [Iron] 325 mg PO DAILY 04/19/16 [History] Insulin ASPART [NovoLOG] 80 unit IJ DAILY PRN 04/19/16 [History] Lisinopril [Zestril] 10 mg PO DAILY 04/19/16 [History] Terbinafine HCl [Lamisil] 250 mg PO DAILY 04/19/16 [History] Allergies/Adverse Reactions: Allergies No Known Allergies Allergy (Verified 04/19/16 10:27) Date of admission: 04/20/16 16:30 Primary care physician: Gabrielle Carvajal, Discharging clinician: Krishna Strong Anticipated date of discharge: 04/21/16 - Patient Status Disposition: Home, Self-Care Condition: Good - Discharge Instructions Instructions: Diabetic Hypoglycemia (DC) Follow Up With: Gabrielle Carvajal CNP [Primary Care Provider] - 04/29/16 2:15 pm Interval History: See below Hospital course: 56 Y/O M with Type I DM, HTN He was admitted for management of new onset seizure (unwitnessed) and viral syndrome Patient was also febrile with low grade fevers on admission, last Temp 04/19/16 100.9 There was concern for meningitis and suspected sepsis Patient was started on empiric antibiotics for meningitis coverage He was also reviewed by Neurology for new onset seizure, no treatment recommendation Patient is seen this morning at bedside with spouse, ambulatory with no complains and in no form of distress He has been afebrile for >48 hours IV antibiotics were discontinued 24 ours ago, due to no source of infection and negative cultures Urine, blood and CSF cultures preliminary no growth CSF does not show elevated protein or white or red cells, CSF glucose was elevated, preliminary culture negative. Hepres, Lyme PCR not detected. ECHO report noted: LVEF 65-70%, LVH, Mild LVDD, Mild Pul HTN. Normal RV size and function, no valvular dysfunction CXR with no infiltrates EEG is back with normal results Brain MRI with no acute finding Patient's seizure was most likely due to hypoglycemia. He is stable for discharge to follow up wit PCP - Time Spent with Patient Total time spent providing and/or coordinating discharge services: Less than 30 minutes - Constitutional Vitals: Temp Pulse Resp BP Pulse Ox 98.5 F 71 16 117/72 95 04/21/16 07:48 04/21/16 07:48 04/21/16 07:48 04/21/16 07:48 04/21/16 07:48 General appearance: Present: cooperative, A&O X 3, pleasant, no acute distress, answers questions appropriately - Head Head exam: Present: atraumatic, normocephalic - Eye Eye exam: Present: PERRL, conjuntiva pink, sclera anicteric Pupils: Present: PERRL - Neck Neck exam general surgery: Present: supple, trachea midline. Absent: lymphadenopathy - Respiratory Respiratory exam: Present: CTAB. Absent: accessory muscle use, rales, rhonchi, wheezes - Cardiovascular Cardiovascular exam: Present: RRR, +S1, +S2. Absent: diastolic murmur, gallop, rubs, systolic murmur - GI/Abdominal GI/Abdominal exam: Present: normal bowel sounds, soft, no peritoneal signs. Absent: distended, tenderness - Extremities Exam Extremities exam: Present: warm, radial pulses palpable and symetrical. Absent : calf tenderness, cyanotic, pedal edema - Neurological Exam Neurological exam: Present: CN II-XII intact, oriented X3, no focal deficits. Absent: pronater drift, facial droop, speech deficit - Skin Skin exam: Present: dry, intact
[2016-04-21] MEDS ORDERED: Aminoglycoside Consult 1 EACH MC ONE (10:06)
[2016-04-21 10:12] LABS: HSV Source CSF
== END 2016-04-21 10:07 | disposition home or self-care (01) | DRG 637 ==
LOC: EMEROO 02:33 → 3BNU 02:33 → SUATTDRO 04:34 → 3BNU 05:07
PROVIDERS: ADMIT Pediatrics; ATTEND Internal Medicine

== ENCOUNTER 2020-09-07 11:16 | Observation (INO) ==
[2020-09-07 12:00] LABS: Basophils % 0.4 %; Eosinophils # 0.2 K/mcL (0.0-0.6); Eosinophils % 3.3 %; Hematocrit 41.2 % (37.5-50.1); Hemoglobin 14.7 g/dL (12.9-16.9); Immature Granulocytes % 0.2 % (0-4); Lymphocytes # 1.4 K/mcL (0.6-4.6); Lymphocytes % 27.5 %; Mean Corpuscular HGB Conc 35.7 g/dL (31.6-35.5); Mean Corpuscular Hemoglobin 32.6 pg (28.0-33.3); Mean Corpuscular Volume 91.4 fL (83.0-100.0); Mean Platelet Volume 9.7 fL (9.4-12.4); Monocytes # 0.6 K/mcL (0.0-1.3); Monocytes % 11.2 %; Neutrophils # 2.8 K/mcL (1.6-8.9); Platelet Count 251 K/mcL (140-400); Red Blood Count 4.51 M/mcL (4.19-5.50); Red Cell Distribution Width 11.4 % (11.5-14.5); Segmented Neutrophils % 57.4 %; White Blood Count 4.9 K/mcL (4.3-11.1)
[2020-09-07 12:15] LABS: Prothrombin Time 11.8 Seconds (9.4-12.1)
[2020-09-07 12:16] LABS: BUN/Creatinine Ratio 15 (6-26); Blood Urea Nitrogen 11 mg/dL (8-23); Calcium 8.6 mg/dL (8.6-10.3); Carbon Dioxide 28 mEq/L (23-29); Chloride 106 mEq/L (98-107); Glucose 218 mg/dL (70-105); Osmolality,Calculated 296 (280-300); Potassium 3.4 mEq/L (3.5-5.1); Sodium 140 mEq/L (136-145); Troponin I < 0.03 ng/mL (< 0.04); eGFR For African Americans > 60 (> 60); eGFR For Non-African Americans > 60 (> 60)
[2020-09-07 12:18] LABS: Activated Partial Thrombo Time 28.4 Seconds (26.0-36.0)
[2020-09-07] MEDS ORDERED: Naloxone 0.4 MG/ML INJ IVP PRN (13:38)
[2020-09-07 14:12] LABS: Magnesium 1.9 mg/dL (1.6-2.6)
[2020-09-07] MEDS ORDERED: Perflutren Lipid Microsphere 1.3 ML in 0.9 % Sodium Chloride 8.7 ML IVP PRN (14:46)
[2020-09-07] MEDS ORDERED: D5% in Water 1,000 ML IVC PRN (14:50)
[2020-09-07] MEDS ORDERED: *HR* Dextrose 50 % in Water (Vial) 50 ML VIAL IVP PRN (14:50)
[2020-09-07] MEDS ORDERED: Dextrose Gel 15 GM/37.5 ML TUBE PO PRN ×2 (14:50)
[2020-09-07] MEDS ORDERED: *HR* LORazepam 2 MG/ML VIAL IVP PRN ×3 (14:50)
[2020-09-07] MEDS: Insulin LISPRO 300 UNITS/3 ML VIAL SUBQ SCH (16:03)
[2020-09-07] MEDS: Thiamine (B-1) 100 MG TABLET PO SCH (16:43)
[2020-09-07] MEDS: Folic Acid 1 MG TABLET PO SCH (16:43)
[2020-09-07] MEDS: *HR* Heparin 5,000 UNIT/ML VIAL SQ SCH (20:10)
[2020-09-07] MEDS ORDERED: Insulin LISPRO 300 UNITS/3 ML VIAL SUBQ SCH (21:00)
[2020-09-08 06:04] LABS: BUN/Creatinine Ratio 17 (6-26); Blood Urea Nitrogen 13 mg/dL (8-23); Calcium 8.7 mg/dL (8.6-10.3); Carbon Dioxide 30 mEq/L (23-29); Chloride 107 mEq/L (98-107); Glucose 138 mg/dL (70-105); Osmolality,Calculated 296 (280-300); Potassium 3.6 mEq/L (3.5-5.1); Sodium 142 mEq/L (136-145); eGFR For African Americans > 60 (> 60); eGFR For Non-African Americans > 60 (> 60)
[2020-09-08] MEDS: *HR* Heparin 5,000 UNIT/ML VIAL SQ SCH (06:07)
[2020-09-08] MEDS ORDERED: Regadenoson 0.4 MG/5 ML SYRINGE IVP ONE (06:20)
[2020-09-08] MEDS ORDERED: Fluticasone Propionate Nasal 50 MCG/SPRAY BOTTLE NS PRN (07:35)
[2020-09-08] MEDS: Insulin LISPRO 300 UNITS/3 ML VIAL SUBQ SCH (08:52)
[2020-09-08] MEDS ORDERED: lisinopriL 10 MG TABLET PO SCH (09:00)
[2020-09-08] MEDS: Thiamine (B-1) 100 MG TABLET PO SCH (09:06)
[2020-09-08] MEDS: Folic Acid 1 MG TABLET PO SCH (09:07)
[2020-09-08 10:52] VITALS: BP 152/86
[2020-09-08] MEDS ORDERED: Aspirin 81 MG TAB.CHEW PO SCH (11:45)
== END 2020-09-08 13:37 | disposition home or self-care (01) ==
LOC: EMEROOARM 11:16 → CDU 11:16 → SUATTDRO 14:56 → CDU 15:49
PROVIDERS: ADMIT Internal Medicine; ATTEND Internal Medicine